=== PATIENT | female | born 1955 | race Caucasian/White ===

== ENCOUNTER 2025-04-14 18:13 | Emergency (ER) | payer MEDICARE, OTHER ==
[~2025-04-14] VITALS: Ht 170.2 cm; Wt 61.7 kg
[~2025-04-14 18:13] MED LIST: VALS1TAB4 PO
[2025-04-14] MEDS ORDERED: OLME1TAB92 PO (18:29)
[2025-04-14] MEDS ORDERED: IBUP-1957 PO (18:32)
[2025-04-14] MEDS ORDERED: HYDR-3980 PO (18:32)
[2025-04-14] MEDS ORDERED: GABAPENTIN 300 MG CAPSULE ONE (18:59)
[2025-04-14] MEDS: GABAPENTIN 300 MG CAPSULE PO ONE (18:59)
[2025-04-14] MEDS ORDERED: CYCL5TAB PO (19:00)
[2025-04-14] MEDS ORDERED: GABA300C PO (19:00)
[2025-04-14 19:02] VITALS: BP 126/81; TEMP 97.8; O2SAT 98
== END 2025-04-14 19:09 | disposition home or self-care (01) ==
LOC: ER 18:30
DX: M54.16 Radiculopathy, lumbar region (principal); F17.200 Nicotine dependence, unspecified, uncomplicated; I10 Essential (primary) hypertension; Z79.899 Other long term (current) drug therapy; Z88.7 Allergy status to serum and vaccine
CPT/HCPCS: A4606; A4663